=== PATIENT | female | born 1985 | race African-American/Black ===

== ENCOUNTER 2016-05-30 14:27 | Inpatient (IN) | payer OTHER ==
--- NOTE | ~2016-05-30 | PN ---
Unit #: [id number] #: [id number] Patient: YULI LAZO [id number] [facility] [address] [place] [address] [id number] I MR#: [id number] NAME: YULI LAZO ROOM: P259 Age: 30 Sex: F Admission Date: 05/30/2016 : 1985 Attending Physician: Navdeep Fernandes M.D. Admitting Physician: Navdeep Fernandes M.D. Primary Care Physician: Generic Doctor Not In System [facility] PROGRESS NOTES DATE OF SERVICE: 06/02/2016 DISCUSSION Ms. Yuli Solano is a 30-year-old female, seen on 06/02/2016. The patient interviewed, chart reviewed, and obtained information from nursing staff. The patient was compliant and cooperative. Mood sad and dysphoric. Flat affect. The patient was able to maintain safe behavior and reports feeling better. REVIEW OF SYSTEMS Complete review of systems unremarkable. MENTAL STATUS EXAMINATION General appearance, the patient dressed casually. Attention span and concentration, fair. Oriented in place and person. The patient's mood and affect were brighter. Speech, regular rate. Thought process, goal directed. The patient reports still having racing thoughts and paranoia. Recent and remote memory, poor. Insight and judgment, poor. DIAGNOSES 1. Psychosis, not otherwise specified. 2. Mood disorder, not otherwise specified. 3. History of polysubstance abuse. ASSESSMENT/PLAN Advised to continue with current medication. If needed, consider further adjustment of medication. Dictated by... Presley Pizano/igor TD: 06/03/2016 14:29 JOB #: [id number] Unit #: [id number] #: [id number] Patient: YULI LAZO [facility] PROGRESS NOTES X Navdeep Fernandes MD PROGRESS NOTE
--- NOTE | ~2016-05-30 | PN ---
Unit #: [id number] #: [id number] Patient: YULI HAND [id number] [facility] [address] [place] [address] [id number] I MR#: [id number] NAME: YULI HAND ROOM: P252 Age: 30 Sex: F Admission Date: 05/30/2016 : 1985 Attending Physician: Navdeep Fernandes M.D. Admitting Physician: Navdeep Fernandes M.D. Primary Care Physician: Generic Doctor Not In System [facility] PROGRESS NOTES DATE 06/04/2016 DISCUSSION Yuli Hand is a 30-year-old female, seen on 06/04/2016. The patient interviewed, chart reviewed, and obtained information from the nursing staff. The patient was compliant and cooperative. Mood sad and dysphoric, withdrawn, isolative, and guarded but able to maintain safe behavior. The patient reported some anxiety, isolating. REVIEW OF SYSTEMS Complete review of systems unremarkable. MENTAL STATUS EXAMINATION General appearance: Patient casually dressed. Attention span and concentration, fair. Oriented to time, place, and person. Mood and affect, sad and dysphoric. Speech, monotone. Thought process, concrete. Association, the patient denied any thoughts of harming self or others or any psychotic symptoms. Recent and remote memory, poor. Insight and judgment, poor. DIAGNOSIS Mood disorder, NOS. ASSESSMENT/PLAN Advised to continue with the current medication and therapeutic protocol and will monitor response to medication, and make further adjustment of medication. Dictated by... Presley Pizano/alisa TD: 06/05/2016 08:54 JOB #: [id number] Unit #: [id number] #: [id number] Patient: YULI HAND [facility] PROGRESS NOT[facility] X Nvadeep Fernandes MD PROGRESS NOTE
--- NOTE | ~2016-05-30 | PN ---
Unit #: [id number] #: [id number] Patient: YULI HAND [id number] [facility] [address] [place] [address] [id number] I MR#: [id number] NAME: YULI HAND ROOM: P259 Age: 30 Sex: F Admission Date: 05/30/2016 : 1985 Attending Physician: Navdeep Fernandes M.D. Admitting Physician: Navdeep Fernandes M.D. Primary Care Physician: Generic Doctor Not In System [facility] PROGRESS NOTES DATE 05/31/2016 DISCUSSION Ms. Yuli Hand is a 30-year-old female seen on 05/31/2016. Patient was one-to-one, guarded, withdrawn, isolative. Patient was able to answer questions appropriately but still having above mentioned symptoms. Patient withdrawn, isolative. Complete review of system unremarkable. MENTAL STATUS EXAMINATION General appearance, patient dressed casually. Attention span, concentration fair. Oriented in place and person. Mood and affect sad, dysphoric, withdrawn, flat. Speech slow. Thought process circumstantial, guarded. Patient denied any thoughts of harming self or others but hopeless, worthless, withdrawn, flat, guarded, paranoid. Recent and remote memory poor. Insight and judgement poor. DIAGNOSES 1. Psychosis NOS. 2. History of bipolar mood disorder. 3. Opiate use disorder, severe. ASSESSMENT/PLAN Advised to continue with current medication and therapeutic protocol. Will monitor response to medication and make further adjustment of medication. Dictated by... Presley Pizano/margot TD: 06/01/2016 21:17 JOB #: [id number] Unit #: [id number] #: [id number] Patient: YULI HAND [facility] PROGRESS NOT[facility] X Navdeep Fernandes MD PROGRESS NOTE
--- NOTE | ~2016-05-30 | PN ---
Unit #: [id number] #: [id number] Patient: YULI LAZO [id number] [facility] [address] [place] [address] [id number] I MR#: [id number] NAME: YULI LAZO ROOM: P259 Age: 30 Sex: F Admission Date: 05/30/2016 : 1985 Attending Physician: Navdeep Fernandes M.D. Admitting Physician: Navdeep Fernandes M.D. Primary Care Physician: Generic Doctor Not In System [facility] PROGRESS NOTES DATE OF SERVICE: 06/03/2016 DISCUSSION Ms. Yuli Solano is a 30-year-old female, seen on 06/03/2016. The patient interviewed, chart reviewed, and obtained information from nursing staff. The patient reports that she is feeling better, requested for larger portion. Sad and depressed mood. Reported having trouble sleeping and nightmare. REVIEW OF SYSTEMS Complete review of systems unremarkable. MENTAL STATUS EXAMINATION General appearance, the patient dressed casually. Attention span and concentration, fair. Oriented in place and person. Mood and affect, labile. Speech, slow. Thought process, circumstantial. The patient denied any thoughts of harming self or others, but guarded, racing thoughts. Recent and remote memory, poor. Insight and judgment, poor. DIAGNOSES 1. Mood disorder, not otherwise specified. 2. Polysubstance abuse. ASSESSMENT AND PLAN Advised to continue with current medication and therapeutic protocol. Advised Benadryl 50 mg at bedtime. Ordered larger portion. Continue with the inpatient programing. If needed, consider further adjustment of medication. Dictated by... Presley Pizano/igor TD: 06/04/2016 03:48 JOB #: [id number] Unit #: [id number] #: [id number] Patient: YULI LAZO [facility] NOT[facility] X Navdeep Fernandes MD PROGRESS NOTE
--- NOTE | ~2016-05-30 | PN ---
Unit #: [id number] #: [id number] Patient: YULI LAZO [id number] [facility] [address] [place] [address] [id number] I MR#: [id number] NAME: YULI LAZO ROOM: P259 Age: 30 Sex: F Admission Date: 05/30/2016 : 1985 Attending Physician: Navdeep Fernandes M.D. Admitting Physician: Navdeep Fernandes M.D. Primary Care Physician: Generic Doctor Not In System [facility] PROGRESS NOTES DATE OF SERVICE: 06/01/2016 DISCUSSION Ms. Yuli Solano is a 30-year-old female, seen on 06/01/2016. The patient was guarded, paranoid, anxious, withdrawn, isolative, and guarded. The patient still having the above-mentioned symptom and psychosis. REVIEW OF SYSTEMS Complete review of systems unremarkable. MENTAL STATUS EXAMINATION General appearance, the patient dressed in hospital attire. Attention span and concentration, poor. Mood and affect, labile. Speech, slow. Thought process, circumstantial and guarded. The patient denied any thoughts of harming self or others, but guarded, paranoid, and delusional. Recent and remote memory, poor. Insight and judgment, poor. DIAGNOSES Psychosis, not otherwise specified and history of polysubstance abuse. ASSESSMENT AND PLAN Advised to change Zyprexa to 5 mg in the morning and 10 mg at bedtime. Monitor the patient's mood and behavior closely. If needed, consider further adjustment of medication. Dictated by... Presley Pizano/igor TD: 06/03/2016 14:37 JOB #: [id number] Unit #: [id number] #: [id number] Patient: YULI LAZO PROGRESS NOTES X Navdeep Fernandes MD PROGRESS NOTE
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
--- NOTE | ~2016-05-30 | DS ---
Unit #: [id number] #: [id number] Patient: YULI LAZO [id number] [facility] [address] [place] [address] [id number] I MR#: [id number] NAME: YULI LAZO ROOM: [facility] Age: 30 Sex: F Admission Date: 05/30/2016 : 1985 Discharge Date: 06/05/2016 Attending Physician: Navdeep Fernandes M.D. Primary Care Physician: Generic Doctor Not In System DISCHARGE SUMMARY REASON FOR ADMISSION Detox, disoriented, depression, and psychosis. DIAGNOSTIC STUDIES LABORATORY RESULTS: Remarkable for a glucose of 139. HOSPITAL COURSE The patient was admitted to inpatient unit on 05/30/2016 and discharged on 06/05/2016. The patient was treated on the inpatient unit with expressive therapy, medication management, psychotherapy, psychoeducation, and structured milieu. The patient responded well with the above modalities of treatment and following medications; Zyprexa 5 mg at bedtime for mood stabilization and psychosis and Benadryl 50 mg at bedtime for sleep and EPS symptom. DISCHARGE DIAGNOSES Psychiatric: 1. Opioid use disorder, severe. 2. Amphetamine use disorder, severe. 3. Sedative-hypnotic use disorder. 4. Psychosis, not otherwise specified. 5. Mood disorder, not otherwise specified. Secondary diagnosis: Deferred. Medical diagnosis: Gastroesophageal reflux disease. Stressors: Psychosocial stressors. DISCHARGE INSTRUCTIONS The patient is to follow up in outpatient clinic as per social media job titles. CONDITION ON DISCHARGE The patient was pleasant and cooperative. Denied any psychotic symptom or any suicidal ideation. PROGNOSIS Guarded. DIET AND ACTIVITY As tolerated. Dictated by... Unit #: [id number] #: [id number] Patient: YULI LAZO Presley PizanoC/ambrosiol TD: 06/05/2016 21:11 JOB #: [id number] DISCHARGE SUMMARY X Navdeep Fernandes MD X DISCHARGE SUMMARY
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
--- NOTE | ~2016-05-30 | PA ---
Unit #: [id number] #: [id number] Patient: YULI LAZO [id number] [facility] [address] [place] [address] [id number] I MR#: [id number] NAME: YULI LAZO ROOM: P252 Age: 30 Sex: F Admission Date: 05/30/2016 : 1985 Date of Assessment: 05/30/2016 Attending Physician: Navdeep Fernandes M.D. Admitting Physician: Navdeep Fernandes M.D. Primary Care Physician: Generic Doctor Not In System PSYCHIATRIC ASSESSMENT DATE OF SERVICE 05/30/2016. INFORMANTS The patient reliability, poor; chart reliability, good. CHIEF COMPLAINT Psychosis and aggression. HISTORY OF PRESENT ILLNESS Karla Blank is a 30-year-old female, seen on 05/30/2016. The patient has a history of previous admission at [place] and [facility]. The patient presented with police. The patient's behavior was bizarre, naked. The patient admitted using heroin, amphetamine, and Xanax. The patient was agitated, hostile, out of control behavior. Mood was labile, guarded, and paranoid. Unable to give reliable information. The patient reported having chills, sweats, tremor, dilated pupils, having withdrawal symptom. The patient scored 14 on COWS scale. Needing inpatient admission at this time for psychiatric stabilization. PAST PSYCHIATRIC HISTORY Remarkable for history of previous treatment as mentioned above. FAMILY HISTORY AND SOCIAL HISTORY Family history is unremarkable. No known history of any abuse. MEDICAL HISTORY Unremarkable for any chronic medical illness. Musculoskeletal; muscle strength and tone, no atrophy or abnormal movement. Gait normal. MEDICATION HISTORY None. ALLERGIES No known drug allergies. SUBSTANCE ABUSE HISTORY The patient has a history of tobacco use, age of onset 21; alcohol, age of onset 21; marijuana, age of onset 20; crack cocaine, age of onset 21; opioid, age of onset 26; amphetamine, age of onset 26; and prescription medication, age of onset 26. The patient has a history of blackout and history of withdrawal symptom as mentioned above. Unit #: [id number] #: [id number] Patient: YULI LAZO REVIEW OF SYSTEMS HEENT: Eyes, clear. Ears, nose, mouth, and throat; clear. CARDIOVASCULAR: Unremarkable. RESPIRATORY: Unremarkable. GI: Unremarkable. : Unremarkable. SKIN: Unremarkable. LYMPH NODE: Unremarkable. NEUROLOGIC: Unremarkable. ENDOCRINE: Unremarkable. HEMATOLOGIC: Unremarkable. ALLERGIC/IMMUNOLOGIC: Unremarkable. MUSCULOSKELETAL: Muscle strength and tone, no atrophy or abnormal movement. Gait normal. MENTAL STATUS EXAMINATION CONSTITUTIONAL: Measurement of vital signs; temperature 98.4, pulse 66, respirations 16, and blood pressure 113/72. GENERAL APPEARANCE: The patient dressed casually. The patient did not show any facial deformity. MUSCULOSKELETAL: Please see above. PSYCHIATRIC EXAMINATION Description of speech, slow. Description of thought process, circumstantial. Description of association; guarded, paranoid, substance abuse. Denied any thoughts of harming self or others. Description of the patient's judgment: Concerning everyday activity, poor. Social situation, poor. Concerning psychiatric condition, poor. Complete mental status examination; orientation, unable to assess. Attention span and concentration, poor. Language, the patient has intelligible speech. Fund of knowledge, poor. Vocabulary, poor. Mood and affect, labile. Insight and judgment, poor. ASSETS AND LIABILITIES Assets; the patient is articulate, able to take care of herself. Liabilities; history of substance abuse, depression, psychosis. ADMITTING DIAGNOSES Psychiatric: 1. Psychosis, not otherwise specified. 2. Mood disorder, not otherwise specified. 3. Opioid use disorder, severe, F11.20. 4. Cannabis abuse, moderate, F12.20. 5. Amphetamine use disorder, severe. 6. Sedative-hypnotic use disorder. Secondary diagnosis: Deferred. Medical diagnosis: Gastroesophageal reflux disease. Stressors: Psychosocial stressors. PSYCHIATRIC PLAN, TREATMENT GOAL, AND DISCHARGE PLAN 1. Advised to admit the patient on the inpatient unit. Provide safe, supportive, and structured environment. 2. Ordered labs; CBC, CMP, UA, and UDS. 3. The patient is to be monitored closely for any aggression and self-harm as the patient is having disorganized behavior. Unit #: [id number] #: [id number] Patient: YULI LAZO 4. Plan is to consider Zyprexa 10 mg at bedtime. If needed, consider further adjustment of medication. 5. The patient is to attend all the programing, detox protocol, and detox monitoring. 6. Treatment goal is to attain euthymic mood, gain insight into her problem, and learn coping skills. 7. Discharge plan: Plan is to stabilize the patient and consider followup in outpatient program. ESTIMATED LENGTH OF STAY 5 days. Dictated by... Presley Pizano/igor TD: 06/05/2016 22:37 JOB #: [id number] PSYCHIATRIC ASSESSMENT X Navdeep Fernandes MD PSYCHIATRIC ASSESSMENT
[2016-05-31 09:42] LABS: BASOPHIL% 0.4 % (0-2.5); EOSINOPHIL% 0.3 % (0.0-7.0); HEMATOCRIT 37.4 % (35.0-45.0); HEMOGLOBIN 13.3 gm/dL (12.0-16.0); LYMPHOCYTE% 24.7 % (17.0-45.0); MEAN CELL VOLUME 88.5 FL (83-96); MEAN CORPUSCULAR HEMOGLOBIN 31.5 PG (28-34); MEAN CORPUSCULAR HGB CONC 35.5 g/dL (30-36); MEAN PLATELET VOLUME 9.2 FL (6.5-11.5); MONOCYTE# 0.6 X10e3 (0-1.0); MONOCYTE% 7.3 % (3.0-12.0); NEUTROPHIL# 5.6 X10e3 (1.5-7.1); NEUTROPHIL% 67.3 % (40-75); PLATELET COUNT 213 X10e3 (140-420); RED BLOOD COUNT 4.23 X10e (3.90-5.30); RED CELL DISTRIBUTION WIDTH 12.6 % (11.0-15.5); WHITE BLOOD COUNT 8.3 X10e3 (4.0-10.5)
[2016-05-31 09:55] LABS: DIFF IND NO
[2016-05-31 10:05] LABS: THYROID STIMULATING HORMONE 0.53 uIU/ml (0.34-5.60)
[2016-05-31 10:13] LABS: FREE THYROXIN (T4) 1.12 ng/dL (0.58-1.64)
[2016-05-31 10:26] LABS: ALBUMIN SERUM 4.8 g/dL (3.5-5.0); ALKALINE PHOSPHATASE 79 U/L (32-92); ALT (SGPT) 12 U/L (10-40); AST (SGOT) 16 U/L (10-42); BILIRUBIN,TOTAL 1.4 mg/dL (0.2-2.0); BLOOD UREA NITROGEN 17 mg/dL (9-23); BUN/CREATININE RATIO 21.25; CARBON DIOXIDE 22 mmol/L (22-31); CHLORIDE 108 mmol/L (100-111); CREATININE SERUM 0.8 mg/dL (0.6-1.4); GLOM FILT RATE Estimated ABOVE60 mL/min (>60); GLUCOSE FASTING 102 mg/dL (70-110); POTASSIUM 3.9 mmol/L (3.5-5.1); PROTEIN TOTAL SERUM 8.2 g/dL (6.0-8.3); SODIUM 143 mmol/L (135-145)
[2016-06-04 11:33] LABS: URINE APPEARANCE CLOUDY; URINE BILIRUBIN NEG (NEG); URINE BLOOD TRACE (NEG); URINE COLOR YELLOW; URINE GLUCOSE NEG (NEG); URINE KETONE NEG (NEG); URINE LEUKOCYTE ESTERASE 1+ (NEG); URINE NITRATE NEG (NEG); URINE PROTEIN NEG (NEG); URINE UROBILINOGEN 0.2 MG/DL (NEG)
[2016-06-04 11:39] LABS: URBCS1 AUWI 25-50 /[HPF] (0-2); URINE BACTERIA AUWI 4+ (NEGATIVE); URINE SQUAMOUS EPITHELIAL CELL NONE SEEN /[HPF]
== END 2016-06-05 10:40 | disposition home or self-care (01) | DRG 885 ==
LOC: P2L 14:27 → POF 06-02 15:25 → P2L 06-02 15:31
PROVIDERS: Psychiatry & Neurology Psychiatry
PROC: HZ2ZZZZ Detoxification Services for Substance Abuse Treatment (ICD-10-PCS; principal; 2016-05-30)
DX: F29 Unspecified psychosis not due to a substance or known physiological condition (principal); F11.20 Opioid dependence, uncomplicated; F13.20 Sedative, hypnotic or anxiolytic dependence, uncomplicated; F15.20 Other stimulant dependence, uncomplicated; F39 Unspecified mood [affective] disorder; F12.20 Cannabis dependence, uncomplicated; K21.9 Gastro-esophageal reflux disease without esophagitis; F17.200 Nicotine dependence, unspecified, uncomplicated
CPT/HCPCS: 80053; 81003; 82947; 84439; 84443; 85025; 86592; 87806; J0515; J1630; J2060

== ENCOUNTER 2016-06-01 11:21 | Emergency (ER) | payer OTHER ==
--- NOTE | ~2016-06-01 | CT71 ---
[facility] A Service of [facility] RADIOLOGY TEXT RESULTS PATIENT: YULI LAZO LOCATION: YULISSA : [birth year] UNIT #: [id number] AGE: [address]: Pattie Holden MD SEX: F ORDER DR: [id number] [facility] [place], [place] [address] [id number] MR#: [id number] Acc #: [id number] NAME: YULI LAZO : 1985 SEX: F STUDY DATE/TIME: 06/01/2016 13:38 UNIT: [facility] ROOM: STUDY DESCRIPTION: CT Head Wo Contrast Attending Physician: Pattie Holden M.D. Ordering Physician: Pattie Holden M.D. Primary Care Physician: No Primary Care Physician MEDICAL IMAGING REPORT This report is preliminary unless electronic signature is present EXAM CT scan of the brain without contrast. DATE OF EXAM 06/01/2016 HISTORY Fell this morning with head injury. TECHNIQUE NOTE: This CT exam was performed with one or more of the following radiation dose reduction techniques: automatic exposure control, adjustment of mA and/or kV according to patient size, and iterative reconstruction. FINDINGS Axial noncontrast images were obtained from the skull base to the vertex. Ventricular size and configuration are normal. There is no evidence of acute infarct or hemorrhage. There are no extra-axial fluid collections. No mass lesion or mass effect is seen. There are no skull fractures. IMPRESSION Normal noncontrast head CT. Dictated by... Dmitry Flores M.D. THIS IS AN ELECTRONICALLY VERIFIED REPORT Dmitry Flores M.D. at 06/01/2016 4:12 PM FEL/jt [facility] A Service [facility] RADIOLOGY TEXT RESULTS PATIENT: YULI LAZO LOCATION: [facility] : 89 UNIT #: [id number] AGE: [address]: Pattie Holden MD SEX: F ORDER DR: TD: 06/01/2016 15:54 JOB #: [id number] MEDICAL IMAGING REPORT COPY
--- NOTE | ~2016-06-01 | CT52 ---
[facility] A Service of [facility] RADIOLOGY TEXT RESULTS PATIENT: YULI LAZO LOCATION: [facility] : 89 UNIT #: [id number] AGE: [address]: Pattie Holden MD SEX: F ORDER DR: [id number] [address] [place], [place] [address] [id number] E MR#: [id number] Acc #: [id number] NAME: YULI LAZO : 1985 SEX: F STUDY DATE/TIME: 06/01/2016 13:38 UNIT: [facility] ROOM: STUDY DESCRIPTION: CT Cervical Spine Wo Cont Attending Physician: Pattie Holden M.D. Ordering Physician: Pattie Holden M.D. Primary Care Physician: No Primary Care Physician MEDICAL IMAGING REPORT This report is preliminary unless electronic signature is present EXAM CT cervical spine without contrast. INDICATION Fall. Neck pain. TECHNIQUE CT of the cervical spine without contrast. Coronal and sagittal reconstructions were obtained. This CT exam was performed with one or more of the following radiation dose reduction techniques: automatic exposure control, adjustment of mA and/or kV according to patient size, and iterative reconstruction. COMPARISON None available. FINDINGS There is no acute fracture or subluxation. Vertebral body height and alignment is normal. The craniocervical junction and atlantoaxial articulations are within normal limits. Prevertebral soft tissues are normal. IMPRESSION Negative CT of the cervical spine. Dictated by... Enmanuel Snider M.D. THIS IS AN ELECTRONICALLY VERIFIED REPORT Enmanuel Snider M.D. at 06/01/2016 4:21 PM [facility] A Service [facility] RADIOLOGY TEXT RESULTS PATIENT: YULI LAZO LOCATION: [facility] : 89 UNIT #: [id number] AGE: [address]: Pattie Holden MD SEX: F ORDER DR: Tiffany TD: 06/01/2016 16:10 JOB #: [id number] MEDICAL IMAGING REPORT COPY
--- NOTE | ~2016-06-01 | CR150 ---
[facility] A Service of [facility] RADIOLOGY TEXT RESULTS PATIENT: YULI LAZO LOCATION: [facility] : 87 UNIT #: [id number] AGE: [address]: Pattie Holden MD SEX: F ORDER DR: [id number] [facility] [address] [place], [place] [address] [id number] E MR#: [id number] Acc #: [id number] NAME: YULI LAZO : 1985 SEX: F STUDY DATE/TIME: 06/01/2016 12:01 UNIT: [facility] ROOM: STUDY DESCRIPTION: CR Hip Min 2 Views Lt Attending Physician: Pattie Holden M.D. Ordering Physician: Pattie Holden M.D. Primary Care Physician: No Primary Care Physician MEDICAL IMAGING REPORT This report is preliminary unless electronic signature is present EXAM AP pelvis with frog view left hip. DATE 06/01/2016 HISTORY Left hip pain after falling today. FINDINGS No pelvic fracture, hip fracture, or hip dislocation is seen. Both hip joints appear well preserved without any appreciable osteoarthritic change. The imaged portion of the lower lumbar spine appears unremarkable. No sacroiliac joint or pubic symphysis diastasis. Bilateral tubal ligation clips in place. IMPRESSION Normal pelvis and left hip. Dictated by... Farrah Link M.D. THIS IS AN ELECTRONICALLY VERIFIED REPORT Farrah Link M.D. at 06/02/2016 10:06 PM BRITNI/marleni TD: 06/01/2016 14:24 JOB #: [id number] MEDICAL IMAGING REPORT COPY
== END 2016-06-01 18:18 ==
LOC: CED 11:21
DX: S00.93XA Contusion of unspecified part of head, initial encounter (principal); S70.02XA Contusion of left hip, initial encounter; Z91.030 Bee allergy status; W18.09XA Striking against other object with subsequent fall, initial encounter; Y92.22 Religious institution as the place of occurrence of the external cause
CPT/HCPCS: 70450; 72125; 73502; 84703; 99285